=== PATIENT | female | born 1965 | race Caucasian/White ===

== ENCOUNTER 2021-07-27 18:12 | Emergency (ER) | payer MEDICARE ==
[~2021-07-27] VITALS: Ht 165.1 cm; Wt 93.0 kg
[2021-07-27] MEDS ORDERED: ZITHROMAX500 MG PO (20:40)
[2021-07-27] MEDS ORDERED: TESSALON PERLE100 MG PO (20:40)
[2021-07-27 21:03] VITALS: BP 127/71
== END 2021-07-27 21:03 | disposition home or self-care (01) ==
LOC: ED 18:12
DX: J20.9 Acute bronchitis, unspecified (principal); I10 Essential (primary) hypertension; E11.9 Type 2 diabetes mellitus without complications; Z20.822 Contact with and (suspected) exposure to COVID-19